=== PATIENT | male | born 1955 | race Caucasian/White ===

== ENCOUNTER 2016-06-20 14:16 | Emergency (ER) | payer MEDICARE, OTHER ==
--- NOTE | 2016-06-20 15:02 | ED ---
General Adult HPI - General Chief complaint: Psychiatric Symptoms Stated complaint: MENTAL EVAL Time Seen by Provider: 06/20/16 14:29 Source: police Mode of arrival: ambulatory Limitations: no limitations - History of Present Illness Initial comments: This patient is a 60-year-old man who reportedly has an underlying history of schizophrenia, who is brought to have psychiatric evaluation. The patient was stopped by police after he went through a red light, and then he was not able to adequately explain is driving. The officer files a petition that the patient was not making sense and the answers to the questions given. When I interviewed the patient he is without complaints. He denies any pain or injury. He denies dyspnea, nausea and vomiting. The patient believes that he is here to be checked to see if he requires any medication. He is not able to adequately explain the driving earlier. The patient is oriented to person and place and is able state that today is Sunday but not give the exact date. -: hour(s) Consistency: constant Improves with: none Worsens with: none Associated Symptoms: confusion - Related Data Home Medications Medication Instructions Recorded Confirmed Aspirin EC [Ecotrin Low Dose] 81 mg PO DAILY 06/20/16 06/20/16 Calcium Polycarbophil [Fibercon] 625 mg PO DAILY 06/20/16 06/20/16 Simvastatin [Zocor] 40 mg PO HS 06/20/16 06/20/16 cloZAPine [Clozaril] 50 mg PO DAILY 06/20/16 06/20/16 cloZAPine [Clozaril] 100 mg PO Q4H 06/20/16 06/20/16 Allergies Allergy/AdvReac Type Severity Reaction Status Date / Time No Known Allergies Allergy Unverified 06/20/16 16:28 Review of Systems ROS Statement: Those systems with pertinent positive or pertinent negative responses have been documented in the HPI. ROS Other: All systems not noted in ROS Statement are negative. Limitations: ROS unobtainable due to patients medical condition Respiratory: Denies: cough, dyspnea Cardiovascular: Denies: chest pain, syncope Gastrointestinal: Denies: abdominal pain, vomiting, diarrhea Musculoskeletal: Denies: back pain Neurological: Denies: headache Psychiatric: Denies: depression, homicidal thoughts, suicidal thoughts Past Medical History Past Medical History: Diabetes Mellitus History of Any Multi-Drug Resistant Organisms: None Reported Past Surgical History: No Surgical Hx Reported Past Psychological History: Anxiety, Depression, Schizophrenia Smoking Status: Current every day smoker Past Alcohol Use History: None Reported Past Drug Use History: None Reported General Exam General appearance: alert, in no apparent distress Head exam: Present: atraumatic, normocephalic Eye exam: Present: normal appearance, PERRL, EOMI. Absent: scleral icterus, conjunctival injection ENT exam: Present: normal oropharynx, mucous membranes moist Neck exam: Present: normal inspection, full ROM. Absent: tenderness Respiratory exam: Present: normal lung sounds bilaterally. Absent: respiratory distress, wheezes, rales, rhonchi, stridor Cardiovascular Exam: Present: regular rate, normal rhythm, normal heart sounds. Absent: systolic murmur, diastolic murmur, rubs, gallop GI/Abdominal exam: Present: soft. Absent: distended, tenderness, guarding, rebound Extremities exam: Present: normal inspection, normal capillary refill. Absent: pedal edema, calf tenderness Back exam: Present: normal inspection. Absent: CVA tenderness (R), CVA tenderness (L) Neurological exam: Present: alert, oriented X3, CN II-XII intact, other (As patient does seem to have difficulty with word finding, and may have some mild expressive aphasia. He is able to follow simple multistep commands.). Absent: motor sensory deficit Psychiatric exam: Present: other (Patient's does display disordered thought processes and some tangential thought processes.). Absent: depressed, anxious, homicidal ideation, suicidal ideation Skin exam: Present: warm, dry, intact, normal color. Absent: rash Course Vital Signs 06/20/16 06/20/16 14:38 17:38 Temperature 97.2 F L 97.4 F L Pulse Rate 80 75 Respiratory 16 18 Rate Blood Pressure 138/60 135/78 O2 Sat by Pulse 99 98 Oximetry EKG Findings - EKG Results: EKG: interpreted by MACIEJ SAHW, sinus rhythm (Rate 67 bpm), normal axis, normal QRS, normal ST/T, no acute changes Medical Decision Making - Lab Data Result diagrams: 06/20/16 15:30 06/20/16 15:30 Lab Results 06/20/16 06/20/16 06/20/16 Range/Units 15:30 15:30 15:30 WBC 7.3 (3.8-10.6) k/uL RBC 4.53 (4.30-5.90) m/uL Hgb 14.2 (13.0-17.5) gm/dL Hct 44.0 (39.0-53.0) % MCV 97.2 (80.0-100.0) fL MCH 31.4 (25.0-35.0) pg MCHC 32.3 (31.0-37.0) g/dL RDW 14.1 (11.5-15.5) % Plt Count 199 (150-450) k/uL Neutrophils % 77 % Lymphocytes % 15 % Monocytes % 5 % Eosinophils % 1 % Basophils % 0 % Neutrophils # 5.6 (1.3-7.7) k/uL Lymphocytes # 1.1 (1.0-4.8) k/uL Monocytes # 0.4 (0-1.0) k/uL Eosinophils # 0.1 (0-0.7) k/uL Basophils # 0.0 (0-0.2) k/uL PT (9.0-12.0) sec INR (<1.1) APTT (22.0-30.0) sec Sodium 142 (137-145) mmol/L Potassium 4.3 (3.5-5.1) mmol/L Chloride 106 (98-107) mmol/L Carbon Dioxide 26 (22-30) mmol/L Anion Gap 10 mmol/L BUN 12 (9-20) mg/dL Creatinine 0.96 (0.66-1.25) mg/dL Est GFR (MDRD) Af Amer >60 (>60 ml/min/1.73 sqM) Est GFR (MDRD) Non-Af >60 (>60 ml/min/1.73 sqM) Glucose 98 (74-99) mg/dL POC Glucose (mg/dL) (75-99) mg/dL POC Glu Fur Tinter ID Plasma Lactic Acid Angel (0.7-2.0) mmol/L Calcium 9.0 (8.4-10.2) mg/dL Total Bilirubin 0.4 (0.2-1.3) mg/dL AST 36 (17-59) U/L ALT 45 (21-72) U/L Alkaline Phosphatase 46 (38-126) U/L Ammonia (<30) umol/L Troponin I (0.000-0.034) ng/mL Total Protein 6.9 (6.3-8.2) g/dL Albumin 4.2 (3.5-5.0) g/dL Urine Color Light Yellow Urine Appearance Clear (Clear) Urine pH 6.0 (5.0-8.0) Ur Specific [place] 1.004 (1.001-1.035) Urine Protein Negative (Negative) Urine Glucose (UA) Negative (Negative) Urine Ketones Negative (Negative) Urine Blood Negative (Negative) Urine Nitrate Negative (Negative) Urine Bilirubin Negative (Negative) Urine Urobilinogen <2.0 (<2.0) mg/dL Ur Leukocyte Esterase Small H (Negative) Urine RBC 2 (0-5) /hpf Urine WBC 4 (0-5) /hpf Urine Mucus Rare H (None) /hpf Urine Opiates Screen Not Detected (NotDetected) Ur Oxycodone Screen Not Detected (NotDetected) Urine Methadone Screen Not Detected (NotDetected) Ur Propoxyphene Screen Not Detected (NotDetected) Ur Barbiturates Screen Not Detected (NotDetected) U Tricyclic Antidepress Not Detected (NotDetected) Ur Phencyclidine Scrn Not Detected (NotDetected) Ur Amphetamines Screen Not Detected (NotDetected) U Methamphetamines Scrn Not Detected (NotDetected) U Benzodiazepines Scrn Not Detected (NotDetected) Urine Cocaine Screen Not Detected (NotDetected) U Marijuana (THC) Screen Not Detected (NotDetected) 06/20/16 06/20/16 06/20/16 Range/Units 15:30 15:30 15:39 WBC (3.8-10.6) k/uL RBC (4.30-5.90) m/uL Hgb (13.0-17.5) gm/dL Hct (39.0-53.0) % MCV (80.0-100.0) fL MCH (25.0-35.0) pg MCHC (31.0-37.0) g/dL RDW (11.5-15.5) % Plt Count (150-450) k/uL Neutrophils % % Lymphocytes % % Monocytes % % Eosinophils % % Basophils % % Neutrophils # (1.3-7.7) k/uL Lymphocytes # (1.0-4.8) k/uL Monocytes # (0-1.0) k/uL Eosinophils # (0-0.7) k/uL Basophils # (0-0.2) k/uL PT 10.8 (9.0-12.0) sec INR 1.1 (<1.1) APTT 24.0 (22.0-30.0) sec Sodium (137-145) mmol/L Potassium (3.5-5.1) mmol/L Chloride (98-107) mmol/L Carbon Dioxide (22-30) mmol/L Anion Gap mmol/L BUN (9-20) mg/dL Creatinine (0.66-1.25) mg/dL Est GFR (MDRD) Af Amer (>60 ml/min/1.73 sqM) Est GFR (MDRD) Non-Af (>60 ml/min/1.73 sqM) Glucose (74-99) mg/dL POC Glucose (mg/dL) 95 (75-99) mg/dL POC Glu Fur Tinter ID Seanolimpia Kylie Plasma Lactic Acid Angel (0.7-2.0) mmol/L Calcium (8.4-10.2) mg/dL Total Bilirubin (0.2-1.3) mg/dL AST (17-59) U/L ALT (21-72) U/L Alkaline Phosphatase (38-126) U/L Ammonia (<30) umol/L Troponin I <0.012 (0.000-0.034) ng/mL Total Protein (6.3-8.2) g/dL Albumin (3.5-5.0) g/dL Urine Color Urine Appearance (Clear) Urine pH (5.0-8.0) Ur Specific [place] (1.001-1.035) Urine Protein (Negative) Urine Glucose (UA) (Negative) Urine Ketones (Negative) Urine Blood (Negative) Urine Nitrate (Negative) Urine Bilirubin (Negative) Urine Urobilinogen (<2.0) mg/dL Ur Leukocyte Esterase (Negative) Urine RBC (0-5) /hpf Urine WBC (0-5) /hpf Urine Mucus (None) /hpf Urine Opiates Screen (NotDetected) Ur Oxycodone Screen (NotDetected) Urine Methadone Screen (NotDetected) Ur Propoxyphene Screen (NotDetected) Ur Barbiturates Screen (NotDetected) U Tricyclic Antidepress (NotDetected) Ur Phencyclidine Scrn (NotDetected) Ur Amphetamines Screen (NotDetected) U Methamphetamines Scrn (NotDetected) U Benzodiazepines Scrn (NotDetected) Urine Cocaine Screen (NotDetected) U Marijuana (THC) Screen (NotDetected) 06/20/16 Range/Units 16:50 WBC (3.8-10.6) k/uL RBC (4.30-5.90) m/uL Hgb (13.0-17.5) gm/dL Hct (39.0-53.0) % MCV (80.0-100.0) fL MCH (25.0-35.0) pg MCHC (31.0-37.0) g/dL RDW (11.5-15.5) % Plt Count (150-450) k/uL Neutrophils % % Lymphocytes % % Monocytes % % Eosinophils % % Basophils % % Neutrophils # (1.3-7.7) k/uL Lymphocytes # (1.0-4.8) k/uL Monocytes # (0-1.0) k/uL Eosinophils # (0-0.7) k/uL Basophils # (0-0.2) k/uL PT (9.0-12.0) sec INR (<1.1) APTT (22.0-30.0) sec Sodium (137-145) mmol/L Potassium (3.5-5.1) mmol/L Chloride (98-107) mmol/L Carbon Dioxide (22-30) mmol/L Anion Gap mmol/L BUN (9-20) mg/dL Creatinine (0.66-1.25) mg/dL Est GFR (MDRD) Af Amer (>60 ml/min/1.73 sqM) Est GFR (MDRD) Non-Af (>60 ml/min/1.73 sqM) Glucose (74-99) mg/dL POC Glucose (mg/dL) (75-99) mg/dL POC Glu Fur Tinter ID Plasma Lactic Acid Angel 0.6 L (0.7-2.0) mmol/L Calcium (8.4-10.2) mg/dL Total Bilirubin (0.2-1.3) mg/dL AST (17-59) U/L ALT (21-72) U/L Alkaline Phosphatase (38-126) U/L Ammonia <9 (<30) umol/L Troponin I (0.000-0.034) ng/mL Total Protein (6.3-8.2) g/dL Albumin (3.5-5.0) g/dL Urine Color Urine Appearance (Clear) Urine pH (5.0-8.0) Ur Specific [place] (1.001-1.035) Urine Protein (Negative) Urine Glucose (UA) (Negative) Urine Ketones (Negative) Urine Blood (Negative) Urine Nitrate (Negative) Urine Bilirubin (Negative) Urine Urobilinogen (<2.0) mg/dL Ur Leukocyte Esterase (Negative) Urine RBC (0-5) /hpf Urine WBC (0-5) /hpf Urine Mucus (None) /hpf Urine Opiates Screen (NotDetected) Ur Oxycodone Screen (NotDetected) Urine Methadone Screen (NotDetected) Ur Propoxyphene Screen (NotDetected) Ur Barbiturates Screen (NotDetected) U Tricyclic Antidepress (NotDetected) Ur Phencyclidine Scrn (NotDetected) Ur Amphetamines Screen (NotDetected) U Methamphetamines Scrn (NotDetected) U Benzodiazepines Scrn (NotDetected) Urine Cocaine Screen (NotDetected) U Marijuana (THC) Screen (NotDetected) Disposition Clinical Impression: Chronic schizophrenia Disposition: HOME SELF-CARE Condition: Fair Instructions: Schizophrenia (ED) Referrals: Hillary Meade III, MD [Primary Care Provider] - 1-2 days
[2016-06-20 15:51] LABS: Basophils % (A) 0 %; CH 31.8; CHCM 32.8; Eosinophils # (A) 0.1 k/uL (0-0.7); Eosinophils % (A) 1 %; HGB 14.2 gm/dL (13.0-17.5); Luc # (Auto) 0.11; Luc % (Auto) 2; Lymphocytes # (A) 1.1 k/uL (1.0-4.8); Lymphocytes % (A) 15 %; MCH 31.4 pg (25.0-35.0); MCHC 32.3 g/dL (31.0-37.0); MCV 97.2 fL (80.0-100.0); Mean Platelet Volume 6.6; Monocytes # (A) 0.4 k/uL (0-1.0); Monocytes % (A) 5 %; Neutrophils # (A) 5.6 k/uL (1.3-7.7); Neutrophils % (A) 77 %; RBC 4.53 m/uL (4.30-5.90); RDW 14.1 % (11.5-15.5); WBC 7.3 k/uL (3.8-10.6); WBC (Perox) 7.48
[2016-06-20 15:53] LABS: Glucose,Whole Blood 95 mg/dL (75-99)
[2016-06-20 15:54] LABS: Appearance,Urine Clear (Clear); Bilirubin,Urine Negative (Negative); Glucose,Urine (UA) Negative (Negative); Ketones,Urine Negative (Negative); Leukocyte Esterase,Urine Small (Negative); Mucus,Urine Rare /hpf; Nitrite,Urine Negative (Negative); Particle Count 535; Protein,Urine Negative (Negative); RBC,Urine 2 /hpf (0-5); Specific Gravity,Urine 1.004 (1.001-1.035); UA Billing (MACRO vs. MICRO) MICRO; Urobilinogen,Urine <2.0 mg/dL (<2.0); WBC,Urine 4 /hpf (0-5)
[2016-06-20 15:57] LABS: ALT 45 U/L (21-72); AST 36 U/L (17-59); Alkaline Phosphatase 46 U/L (38-126); Anion Gap 10 mmol/L; Blood Urea Nitrogen 12 mg/dL (9-20); Carbon Dioxide 26 mmol/L (22-30); Chloride 106 mmol/L (98-107); Glucose 98 mg/dL (74-99); INR 1.1 (<1.1); Non-African American GFR(MDRD) >60 (>60 ml/min/1.73 sqM); Potassium 4.3 mmol/L (3.5-5.1); Prothrombin Time 10.8 sec (9.0-12.0); Sodium 142 mmol/L (137-145); Total Bilirubin 0.4 mg/dL (0.2-1.3); Total Protein 6.9 g/dL (6.3-8.2)
--- NOTE | 2016-06-20 16:11 | CT ---
EXAMINATION TYPE: CT brain wo con DATE OF EXAM: 06/20/2016 4:05 PM COMPARISON: NONE HISTORY: Altered mental status CT DLP: 969.7 mGycm Automated exposure control for dose reduction was used. FINDINGS: Mild to moderate generalized degenerative change. Periventricular low attenuation compatible with rem ote microvascular ischemia. No acute hemorrhage. No mass effect. No midline shift. IMPRESSION: No acute intracranial hemorrhage, mass effect, or midline shift is seen.
[2016-06-20 17:23] LABS: Ammonia <9 umol/L (<30)
[2016-06-20 17:38] VITALS: RESP 18
[2016-06-20 18:45] VITALS: BP 119/75; PULSE 72; TEMP 98
== END 2016-06-20 18:44 | disposition home or self-care (01) ==
LOC: EEVIPCON 14:16 → EC 14:16
DX: F20.9 Schizophrenia, unspecified (principal); R41.0 Disorientation, unspecified; F41.9 Anxiety disorder, unspecified; F32.9 Major depressive disorder, single episode, unspecified; F17.200 Nicotine dependence, unspecified, uncomplicated; Z79.82 Long term (current) use of aspirin; Z79.899 Other long term (current) drug therapy
CPT/HCPCS: 36415; 70450; 80053; 80306; 81001; 82075; 82140; 83605; 84484; 85025; 85610; 85730; 93005; 99285

== ENCOUNTER → 2018-01-04 | Outpatient (CLI) | payer MEDICARE, OTHER ==
--- NOTE | 2018-01-04 16:30 | US ---
EXAMINATION TYPE: US mass soft tissue back DATE OF EXAM: 01/04/2018 COMPARISON: NONE CLINICAL HISTORY: 62-year-old male D17.1 Right back lipoma. Patient was doing yard work and noticed a palpable lump on his lower right back. Painful. The area is hard and non-compressible TECHNIQUE: Targeted sonographic examination of the lower right back soft tissues at the site of palpa ble. FINDINGS: [facility] [employer] notes: Prominent hyperechoic area visualized at the patient's palpable lump measuring 5.8 x 1.3 x 4.8 cm. IMPRESSION: Centered in the subcutaneous fat of the right lower back at the palpable site, there is a 5.8 cm hete rogeneous echogenic area without internal vascularity. The correctional sergeant reports that this is hard and noncompressible making etiologies other than lipoma possible. Further clinical correlation recommende d as to the need for further MRI evaluation, tissue sampling, or excision.
== END | disposition home or self-care (01) ==
LOC: RADUSWWP 13:46
PROVIDERS: ATTEND Surgery
DX: R22.2 Localized swelling, mass and lump, trunk (principal); D17.1 Benign lipomatous neoplasm of skin and subcutaneous tissue of trunk

== ENCOUNTER 2018-01-11 10:14 | Day surgery (SDC) | payer MEDICARE, OTHER ==
[2018-01-08 09:12] VITALS: BMI 23.3
[~2018-01-11 10:14] MED LIST: DEXAMETHASONE SOD PHOSPHATE 10 MG/ML 1 ML VIAL IV ONE; HEPARIN SODIUM,PORCINE 5,000 UNIT/ML 1 ML VIAL SQ ONE; LACTATED RINGERS 1,000 ML IV SCH; LIDOCAINE 1% 20 ML VIAL (10MG/ML) FOR IV START INTRADERMA PRN; MIDAZOLAM 2 MG/2 ML VIAL IV PRN; Pre Op ABX Message 1 EACH MISC MISCELLANE ONE; fentaNYL (PF) 50 MCG/ML 2 ML AMP IV PRN
[2018-01-11 11:41] VITALS: RESP 16; TEMP 98
--- NOTE | 2018-01-11 12:26 | P.GSHP ---
History of Present Illness H&P Date: 01/11/18 Chief Complaint: Right back lipoma This is a 62-year-old male referred from Dr. Meade. Patient developed a right back lipoma. Patient presents today for excision. Lipoma measured proximally 8 x 5 cm. Past Medical History Past Medical History: Cancer, Hyperlipidemia Additional Past Medical History / Comment(s): hx. skin cancer History of Any Multi-Drug Resistant Organisms: None Reported Past Surgical History: Orthopedic Surgery Additional Past Surgical History / Comment(s): ORIF left femur & then ruba removed Past Anesthesia/Blood Transfusion Reactions: No Reported Reaction Smoking Status: Current every day smoker - Past Family History Father Family Medical History: Cancer Medications and Allergies Home Medications Medication Instructions Recorded Confirmed Type Aspirin EC [Ecotrin Low Dose] 81 mg PO DAILY 06/20/16 01/11/18 History Simvastatin [Zocor] 40 mg PO HS 06/20/16 01/11/18 History cloZAPine [Clozaril] 50 mg PO DAILY 06/20/16 01/11/18 History cloZAPine [Clozaril] 100 mg PO QAM 06/20/16 01/11/18 History cloZAPine [Clozaril] 400 mg PO HS 01/08/18 01/11/18 History Allergies Allergy/AdvReac Type Severity Reaction Status Date / Time No Known Allergies Allergy Verified 01/09/18 14:44 Surgical - Exam Vital Signs Temp Pulse Resp BP Pulse Ox 98.0 F 80 16 115/70 97 01/11/18 11:40 01/11/18 11:40 01/11/18 11:40 01/11/18 11:40 01/11/18 11:40 - General well developed, well nourished, no distress - Eyes PERRL - ENT normal pinna - Neck no masses - Respiratory normal expansion - Cardiovascular Rhythm: regular - Abdomen Abdomen: soft, non tender - Integumentary 8 x 5 cm lipoma located in the right lateral back near the flank. Assessment and Plan Assessment: Right back lipoma. We'll perform excision.
[2018-01-11] MEDS ORDERED: KETAMINE 10 MG/ML 20 ML VIAL ONE (12:36)
[2018-01-11] MEDS ORDERED: MIDAZOLAM 2 MG/2 ML VIAL ONE (12:36)
[2018-01-11] MEDS ORDERED: PROPOFOL 10 MG/ML 20 ML VIAL IV ONE (12:36)
[2018-01-11] MEDS ORDERED: LIDOCAINE 1% INJ 10MG/ML (20 ML MDV) ONE (12:36)
[2018-01-11] MEDS ORDERED: fentaNYL (PF) 50 MCG/ML 2 ML AMP ONE (12:36)
[2018-01-11] MEDS ORDERED: SODIUM CHLORIDE 0.9% 50 ML with ceFAZolin 2,000 MG IV ONE ×2 (12:46)
[2018-01-11] MEDS ORDERED: BUPIVACAIN-EPI 0.25%-1:200,000 30 ML VIAL SQ ONE ×2 (13:01)
[2018-01-11 13:43] VITALS: BP 128/85; PULSE 59
--- NOTE | 2018-01-11 13:55 | P.OP ---
Date of Procedure: 01/11/18 Preoperative Diagnosis: Right back lipoma Postoperative Diagnosis: Right back lipoma, fat necrosis Procedure(s) Performed: Excision of right back lipoma Anesthesia: MAC Surgeon: Candido Padilla Estimated Blood Loss (ml): 5 Pathology: other (Back lipoma) Condition: stable Disposition: PACU Description of Procedure: The patient's placed on the operating table in the lateral position. His right back was prepped and draped usual fashion. The patient had a 5 x 10 cm mass located in the right lower back near the flank. The skin was anesthetized 1% local Xylocaine. And then skin incision was made. Cautery the mass was excised. The mass appeared to be a calcified lipoma. It is questionable fat necrosis. The bones using cyst. The skin was closed interrupted 3-0 Monocryl suture. Dermabond was applied. Patient top she will well and was sent to recovery in stable condition.
== END 2018-01-11 14:01 | disposition home or self-care (01) ==
LOC: OR 10:14
PROVIDERS: ATTEND Surgery
DX: M79.89 Other specified soft tissue disorders (principal); E78.5 Hyperlipidemia, unspecified; Z85.828 Personal history of other malignant neoplasm of skin; F17.200 Nicotine dependence, unspecified, uncomplicated; Z79.82 Long term (current) use of aspirin; Z79.899 Other long term (current) drug therapy
CPT/HCPCS: 11406; 88304; J2250; J1644; J1100; J2001; J3010; J0690; J2704